=== PATIENT | female | born 1960 | race African-American/Black ===

== ENCOUNTER 2020-12-18 11:57 | Emergency (ER) | payer OTHER ==
[~2020-12-18] VITALS: Ht 162.6 cm; Wt 115.7 kg
[2020-12-18] MEDS ORDERED: LIPITOR40 MG PO (12:05)
[2020-12-18] MEDS ORDERED: METFORMIN HCL500 M3 PO (12:05)
[2020-12-18] MEDS ORDERED: BASAGLAR K100 UNIT/1 SUBQ (12:05)
[2020-12-18 14:27] VITALS: BP 160/90
== END 2020-12-18 14:37 | disposition home or self-care (01) ==
LOC: ER 11:57
DX: R59.1 Generalized enlarged lymph nodes (principal); E11.9 Type 2 diabetes mellitus without complications; E78.5 Hyperlipidemia, unspecified; F17.210 Nicotine dependence, cigarettes, uncomplicated; Z79.4 Long term (current) use of insulin; Z79.899 Other long term (current) drug therapy; Z91.010 Allergy to peanuts